=== PATIENT | male | born 1955 | race Caucasian/White ===

== ENCOUNTER 2017-10-28 11:30 | Day surgery (SDC) | payer OTHER ==
[2017-10-27 09:57] VITALS: BMI 46.0
--- NOTE | 2017-10-28 14:22 | OP ---
DATE OF PROCEDURE: 10/28/2017 PROCEDURE: Colonoscopy. PHYSICIAN: Dimas Allan M.D. PREMEDICATION: Given by Anesthesiology Department. PREPROCEDURE DIAGNOSIS: Colon screening. POSTPROCEDURE DIAGNOSES: 1. Mild diverticulosis coli. 2. Otherwise normal colon exam. PROCEDURE IN DETAIL: A written consent was obtained prior to the procedure. After adequate sedation , rectal exam performed was normal. Endoscope was advanced to the cecum. The quality of the bowel p rep was good. The cecum, ascending colon, hepatic flexure, transverse colon, splenic flexure, and de scending colon appeared normal. A few scattered diverticula were noted in the sigmoid colon. Retrof lexion in the rectal vault was normal. The colon was then decompressed, the instrument was then full y removed. Patient tolerated procedure well. ASSESSMENT: 1. Mild diverticulosis coli. 2. Otherwise normal colon exam. RECOMMENDATION: Repeat colon screening in 10 years.
[2017-10-28] MEDS ORDERED: PROPOFOL 200 MG/20 ML VIAL ONE (15:30)
[2017-10-28] MEDS ORDERED: Lidocaine 1% PF 5 ML VIAL ONE (15:30)
== END 2017-10-28 14:37 | disposition home or self-care (01) ==
LOC: SDC 11:30
PROVIDERS: ATTEND Internal Medicine Gastroenterology
PROC: 0DJD8ZZ Inspection of Lower Intestinal Tract, Via Natural or Artificial Opening Endoscopic (ICD-10-PCS; principal; 2017-10-28)
DX: Z12.11 Encounter for screening for malignant neoplasm of colon (principal); K57.30 Diverticulosis of large intestine without perforation or abscess without bleeding; E78.00 Pure hypercholesterolemia, unspecified; Z86.010 Personal history of colon polyps; Z87.891 Personal history of nicotine dependence; Z83.71 Family history of colonic polyps; Z79.899 Other long term (current) drug therapy; Z90.49 Acquired absence of other specified parts of digestive tract; Z90.89 Acquired absence of other organs; Z98.890 Other specified postprocedural states
CPT/HCPCS: J2001; J2704

== ENCOUNTER 2019-11-29 18:45 | Emergency (ER) | payer OTHER | END 2019-11-29 19:45 | disposition home or self-care (01) | LOC: ERS 18:45 | DX: E11.65 Type 2 diabetes mellitus with hyperglycemia (principal); G47.33 Obstructive sleep apnea (adult) (pediatric); Z79.84 Long term (current) use of oral hypoglycemic drugs; Z79.899 Other long term (current) drug therapy | CPT/HCPCS: 36416; 99284 ==

== ENCOUNTER 2021-07-29 14:38 | Outpatient (CLI) | payer MEDICARE, OTHER | END 2021-07-29 14:39 | disposition home or self-care (01) | LOC: ULT 14:38 | PROVIDERS: ATTEND Family Medicine | DX: R53.83 Other fatigue (principal); Z86.79 Personal history of other diseases of the circulatory system | CPT/HCPCS: 93306 ==